=== PATIENT | female | born 1955 | race African-American/Black ===

== ENCOUNTER → 2017-12-09 | Outpatient (CLI) | payer MEDICARE | END | disposition home or self-care (01) | LOC: LAB 07:05 | PROVIDERS: ATTEND Internal Medicine | DX: E66.01 Morbid (severe) obesity due to excess calories (principal); R10.9 Unspecified abdominal pain; R63.5 Abnormal weight gain; R53.0 Neoplastic (malignant) related fatigue | CPT/HCPCS: 36415; 36600; 78264; 82306; 82805; 84439; 84443; 93306; A9541 ==